=== PATIENT | female | born 1975 | race Two or more races ===

== ENCOUNTER 2016-10-18 20:25 | Emergency (ER) | payer BC, OTHER ==
[~2016-10-18] VITALS: Ht 157.5 cm; Wt 74.8 kg
[~2016-10-18 20:25] MED LIST: CIPRO500 MG PO; FLAGYL500 MG ORAL; METRONIDAZOLE500 MG ORAL; ONDANSETRON ODT8 MG ORAL; PERCOCET 5-3251 EACH ORAL
[2016-10-18 22:00] VITALS: BP 107/71
[2016-10-18 23:28] LABS: EOSINOPHILS % (AUTO) 0.3 % (0.0-3.0); LYMPHOCYTES % (AUTO) 13.1 % (20.0-45.0); MEAN CORPUSCULAR HEMOGLOBIN 30.2 PG (27.0-31.0); MEAN CORPUSCULAR HGB CONC 34.7 G/DL (32.0-36.0); MEAN CORPUSCULAR VOLUME 87 FL (80-99); MEAN PLATELET VOLUME 6.8 FL (6.5-10.1); MONOCYTES % (AUTO) 7.9 % (1.0-10.0); NEUTROPHILS % (AUTO) 77.7 % (45.0-75.0); PLATELET COUNT 282 K/UL (150-450); RED BLOOD COUNT 4.89 M/UL (4.20-5.40); RED CELL DISTRIBUTION WIDTH 11.2 % (11.6-14.8)
[2016-10-18 23:29] LABS: APPEARANCE,URINE CLEAR; KETONES,URINE NEGATIVE (NEGATIVE); LEUKOCYTE ESTERASE ,URINE NEGATIVE (NEGATIVE); NITRITE,URINE NEGATIVE (NEGATIVE); PH,URINE 8 (4.5-8.0); PROTEIN,URINE NEGATIVE (NEGATIVE); UROBILINOGEN,URINE NORMAL MG/DL (0.0-1.0)
[2016-10-18 23:30] VITALS: BP 110/75
[2016-10-18] MEDS ORDERED: Morphine Sulfate 4mg/ml Inj IVP ONE (23:30)
--- NOTE | 2016-10-18 23:30 | Emergency Room Report ---
History of Present Illness General Chief Complaint: Abdominal Pain Source: Patient (DEON DUARTE M.D.) Present Illness HPI 40 YO F with history of diverticulitis with 2 days progressively worse suprapubic 10/10 sharp non-radiating and LLQ pain associated with change in BM to watery diarrhea. Denies fever/chills, nausea/vomiting. Feels pressure with urination. No other medical problems, sick contacts, foreign travel. (DEON DUARTE M.D.) Allergies: Coded Allergies: No Known Allergies (Unverified , 10/16/14) Patient History Past Medical History: diverticulitis Past Surgical History: none Pertinent Family History: none Social History: Denies: alcohol use, drug use, smoking Last Menstrual Period: 10/11/16 Now: No Immunizations: UTD Reviewed Nursing Documentation: PMH: Agreed, PSxH: Agreed (DEON DUARTE M.D.) Nursing Documentation-PMH Past Medical History: No History, Except For Hx Gastrointestinal Problems: Yes - Diverticulitis (DEON DUARTE M.D.) Review of Systems All Other Systems: negative except mentioned in HPI (DEON UDARTE M.D.) Physical Exam Vital Signs Date Time Temp Pulse Resp B/P Pulse Ox O2 Delivery O2 Flow Rate FiO2 10/18/16 20:58 98.1 92 20 108/79 100 Room Air Sp02 EP Interpretation: reviewed, normal General Appearance: normal inspection, well appearing, no apparent distress, alert Head: atraumatic ENT: normal ENT inspection, hearing grossly normal, normal voice Neck: normal inspection, full range of motion, supple, no bony tend Respiratory: normal inspection, lungs clear, normal breath sounds, no respiratory distress, no retraction, no wheezing Cardiovascular #1: regular rate, rhythm, no edema Gastrointestinal: normal inspection, normal bowel sounds, soft, no guarding, no hernia, other - LLQ ttp Genitourinary: normal inspection, no CVA tenderness Musculoskeletal: normal inspection, back normal, normal range of motion, Maureen' s Sign negative Neurologic: normal inspection, alert, oriented x3, responsive, architectural intern III-XII nml as tested, motor strength/tone normal, speech normal Psychiatric: normal inspection, judgement/insight normal, mood/affect normal Skin: normal inspection, normal color, no rash (DEON DUARTE M.D.) Medical Decision Making Diagnostic Impression: Primary Impression: Diverticulitis Qualified Codes: K57.32 - Diverticulitis of large intestine without perforation or abscess without bleeding ER Course 40 YOF with LLQ pain and watery diarrhea with prior diverticulitis. VSS. Afebrile. DDX recurrent diverticulitis, colitis, viral gastronenteritis PLAN: Labs, analgesia, UA, CTAP Endorsed to Dr Guevara at 1130pm to followup labs, CTAP, determine disposition (DEON DUARTE M.D.) ER Course Patient signed out to me. She had a history of colitis 2 years ago. She presents with suprapubic left lower quadrant pain. Labs show mild leukocytosis. CT scan consistent with acute diverticulitis of the sigmoid colon. No perforation or abscess. Patient felt better now. We'll discharge home. I recommend outpatient colonoscopy make sure this is not inflammatory bowel disease. This can be done after inflammation infection resolved. (THOMAS GUEVARA M.D.) EKG Diagnostic Results Rate: normal Rhythm: NSR ST Segments: no acute changes ASA given to the pt in ED: No (DEON DUARTE M.D.) Rhythm Strip Diag. Results EP Interpretation: yes Rate: 87 Rhythm: NSR, no PVC's, no ectopy (DEON DUARTE M.D.) CT/MRI/US Diagnostic Results CT/MRI/US Diagnostic Results : Imaging Test Ordered: CT abdomen and pelvis Impression acute diverticulitis per radiologist (THOMAS GUEVARA M.D.) Last Vital Signs Date Time Temp Pulse Resp B/P Pulse Ox O2 Delivery O2 Flow Rate FiO2 10/18/16 22:00 80 15 107/71 100 Room Air 10/18/16 20:58 98.1 (DEON DUARTE M.D.) Status: improved (THOMAS GUEVARA M.D.) Disposition: HOME, SELF-CARE Condition: Stable Scripts Hydrocodone/Acetaminophen 5-325* (HYDROCODONE/ACETAMINOPHEN 5-325*) 1 Each Tablet 1 TAB ORAL Q6H Y for For Pain, #20 TAB 0 Refills Prov: THOMAS GUEVARA M.D. 10/19/16 Metronidazole* (FLAGYL*) 500 Mg Tablet 500 MG ORAL BID, #14 TAB Prov: THOMAS GUEVARA M.D. 10/19/16 Ciprofloxacin Hcl* (CIPROFLOXACIN HCL*) 500 Mg Tablet 500 MG ORAL Q12H, #14 TAB 0 Refills Prov: THOMAS GUEVARA M.D. 10/19/16 Referrals: NOT CHOSEN RASHAAD/,REFERRING (PCP) Additional Instructions: Followup with your DrCynthia in 2 to 3 days. Return if symptom worsen. Recommend colonoscopy to check for inflammatory bowel disease. He will need a referral to see a athletic events scorer from your Dr. DEON DUARTE M.D. Oct 18, 2016 23:30 THOMAS GUEVARA M.D. Oct 19, 2016 01:46
[2016-10-18 23:32] LABS: SQUAMOUS EPITHELIAL CELL,UR FEW /LPF (NONE/OCC); WBC,URINE 0-2 /HPF (0 - 2)
[2016-10-18 23:38] LABS: ALANINE AMINOTRANSFERASE 17 U/L (3-33); ALBUMIN/GLOBULIN RATIO 1.5 (1.0-2.7); ANION GAP 14 (5-15); ASPARTATE AMINO TRANSFERASE 19 U/L (5-40); CALCIUM 9.4 mg/dL (8.6-10.2); CARBON DIOXIDE 27 mEQ/L (20-30); CHLORIDE 98 mEQ/L (98-107); CREATININE 0.8 mg/dL (0.5-0.9); GLOMERULAR FILTRATION RATE > 60 mL/min (>60); HEMOLYSIS 15; LIPASE 17 U/L (< 60); POTASSIUM 3.8 mEQ/L (3.4-4.9); SODIUM 139 mEQ/L (135-145); TOTAL PROTEIN 7.2 g/dL (6.6-8.7)
[2016-10-19 01:30] VITALS: BP 120/78
[2016-10-19] MEDS ORDERED: Ciprofloxacin 500mg tab ORAL ONE (01:30)
[2016-10-19] MEDS ORDERED: metroNIDAZOLE 500mg tab ORAL ONE (01:30)
[2016-10-19] MEDS ORDERED: METRONIDAZOLE500 MG ORAL (01:46)
[2016-10-19] MEDS ORDERED: CIPROFLOXACIN500 M2 ORAL (01:46)
[2016-10-19] MEDS ORDERED: HYDROCODON-ACE1 EA15 ORAL (01:46)
[2016-10-19 02:00] VITALS: BP 123/79
--- NOTE | 2016-10-27 13:37 | Cardiology Report ---
APPROVED REPORT EKG Measurement Heart [id number] Normal sinus rhythm Normal ECG
--- NOTE | 2016-10-27 13:57 | Diagnostic Imaging Report ---
Clinical Indication: Abdominal pain Technique: No oral contrast utilized, per emergency room physician request IV administration nonionic contrast. Venous phase spiral acquisition obtained through the abdomen and pelvis. Multiplanar reconstructions were generated. Total dose length product mGycm. CTDIvol(s) mGy Comparison: 11/21/2014 Findings: There is colonic diverticulosis. There is infiltration of the perisigmoid fat adjacent to the proximal sigmoid, and a small amount of fluid tracking in the left paracolic gutter. No focal extra luminal fluid collections. No extraluminal gas demonstrated. Previously demonstrated distal descending diverticulitis is no longer evident. The appendix is normal. No small bowel distention. No free or loculated intraperitoneal air or fluid otherwise. Distal esophagus, stomach, duodenum are unremarkable. The liver demonstrates a 1 cm cyst segment 6, also present previously. Gallbladder, bile ducts, pancreas, spleen adrenals are unremarkable. The kidneys demonstrate bilateral subcentimeter low-attenuation lesions, too small to characterize, also present previously, most likely benign simple cortical cysts. No retroperitoneal or mesenteric mass or adenopathy. No pelvic mass or adenopathy. The included lung bases are clear. The bones are unremarkable except for mild degenerative spondylosis changes.. Impression: Positive for uncomplicated proximal sigmoid acute diverticulitis Bilateral subcentimeter low-attenuation renal lesions, too small to characterize, most likely benign simple cortical cysts. No further followup necessary Incidental findings of degenerative spondylosis, right lobe hepatic cyst This agrees with the preliminary interpretation provided overnight by [facility] teleradiology service. The CT scanner at [facility] is accredited by the [employer] and the scans are performed using protocols designed to limit radiation exposure to as low as reasonably achievable to attain images of sufficient resolution adequate for diagnostic evaluation.
== END 2016-10-19 02:00 | disposition home or self-care (01) ==
LOC: EMR 21:30
DX: K57.32 Diverticulitis of large intestine without perforation or abscess without bleeding (principal)
CPT/HCPCS: 36415; 74177; 80053; 81003; 81025; 83690; 85025; 93005; 96361; 96374; 99284; J2270; Q9967

== ENCOUNTER 2018-01-19 15:31 | Emergency (ER) | payer BC ==
[~2018-01-19] VITALS: Ht 157.5 cm; Wt 72.6 kg
[~2018-01-19 15:31] MED LIST changes: +CIPROFLOXACIN500 M2 ORAL; +HYDROCODON-ACE1 EA15 ORAL
[2018-01-19] MEDS ORDERED: Morphine Sulfate 4mg/ml Inj IVP ONE (16:15)
[2018-01-19] MEDS ORDERED: Isovue-300 100ml vial INJ PRN (16:15)
[2018-01-19 16:34] LABS: BASOPHILS % (AUTO) 1.5 % (0.0-2.0); EOSINOPHILS % (AUTO) 0.4 % (0.0-3.0); HEMOGLOBIN 14.8 G/DL (12.0-16.0); LYMPHOCYTES % (AUTO) 13.9 % (20.0-45.0); MEAN CORPUSCULAR VOLUME 86 FL (80-99); MONOCYTES % (AUTO) 8.5 % (1.0-10.0); NEUTROPHILS % (AUTO) 75.8 % (45.0-75.0); PLATELET COUNT 288 K/UL (150-450); RED BLOOD COUNT 4.86 M/UL (4.20-5.40); RED CELL DISTRIBUTION WIDTH 10.7 % (11.6-14.8); WHITE BLOOD COUNT 12.4 K/UL (4.8-10.8)
[2018-01-19 16:36] LABS: APPEARANCE,URINE CLEAR; BILIRUBIN, URINE NEGATIVE (NEGATIVE); COLOR,URINE PALE YELLOW; GLUCOSE, URINE (UA) NEGATIVE (NEGATIVE); KETONES,URINE NEGATIVE (NEGATIVE); LEUKOCYTE ESTERASE ,URINE 1+ (NEGATIVE); NITRITE,URINE NEGATIVE (NEGATIVE); PH,URINE 7 (4.5-8.0); PROTEIN,URINE NEGATIVE (NEGATIVE); UROBILINOGEN,URINE NORMAL MG/DL (0.0-1.0)
[2018-01-19 16:46] LABS: ANION GAP 9 mmol/L (5-15); BLOOD UREA NITROGEN 10 mg/dL (7-18); CALCIUM 9.1 MG/DL (8.5-10.1); CARBON DIOXIDE 28 MMOL/L (21-32); CHLORIDE 104 MMOL/L (98-107); CREATININE 0.9 MG/DL (0.55-1.30); POTASSIUM 3.5 MMOL/L (3.5-5.1); SODIUM 141 MMOL/L (136-145)
[2018-01-19 16:51] LABS: ALANINE AMINOTRANSFERASE 26 U/L (12-78); ALBUMIN 3.7 G/DL (3.4-5.0); ALBUMIN/GLOBULIN RATIO 0.9 (1.0-2.7); ALKALINE PHOSPHATASE 77 U/L (46-116); ASPARTATE AMINO TRANSFERASE 15 U/L (15-37); BILIRUBIN,TOTAL 0.5 MG/DL (0.2-1.0)
--- NOTE | 2018-01-19 17:16 | Emergency Room Report ---
History of Present Illness General Chief Complaint: Abdominal Pain Source: Patient Present Illness HPI 42-year-old female presents ED for evaluation. Complaining of abdominal pain. Started yesterday. Pain is lower, 8 out of 10, sharp, radiating to right lower abdomen. Denies fevers or chills. Denies nausea or vomiting. Denies dysuria or hematuria. Notes history of diverticulitis but states this does not feel like her diverticulitis. Denies any diarrhea. No other aggravating relieving factors. Denies any other associated symptoms Allergies: Coded Allergies: No Known Allergies (Unverified , 10/16/14) Patient History Past Medical History: other - diverticulitis Past Surgical History: none Pertinent Family History: none Social History: Denies: smoking, alcohol use, drug use Last Menstrual Period: 01/10/2018 Now: No Immunizations: UTD Reviewed Nursing Documentation: PMH: Agreed; PSxH: Agreed Nursing Documentation-PMH Past Medical History: No Stated History Hx Gastrointestinal Problems: Yes - Diverticulitis Review of Systems All Other Systems: negative except mentioned in HPI Physical Exam Vital Signs Date Time Temp Pulse Resp B/P (MAP) Pulse Ox O2 Delivery O2 Flow Rate FiO2 01/19/18 15:46 98.7 107 18 110/70 95 Room Air 98.8 Sp02 EP Interpretation: reviewed, normal General Appearance: no apparent distress, alert, GCS 15, non-toxic Head: normocephalic, atraumatic Eyes: bilateral eye normal inspection, bilateral eye PERRL ENT: hearing grossly normal, normal pharynx, no angioedema, normal voice Neck: full range of motion, supple/symm/no masses Respiratory: chest non-tender, lungs clear, normal breath sounds, speaking full sentences Cardiovascular #1: regular rate, rhythm, no edema Cardiovascular #2: 2+ carotid (R), 2+ carotid (L), 2+ radial (R), 2+ radial (L) , 2+ dorsalis pedis (R), 2+ dorsalis pedis (L) Gastrointestinal: normal bowel sounds, soft, non-distended, no guarding, no rebound, tenderness Rectal: deferred Genitourinary: normal inspection, no CVA tenderness Musculoskeletal: back normal, gait/station normal, normal range of motion, non- tender Neurologic: alert, oriented x3, responsive, motor strength/tone normal, sensory intact, speech normal Psychiatric: judgement/insight normal, memory normal, mood/affect normal, no suicidal/homicidal ideation Reflexes: 3+ bicep (R), 3+ bicep (L), 3+ tricep (R), 3+ tricep (L), 3+ knee (R) , 3+ knee (L) Skin: normal color, no rash, warm/dry, well hydrated Lymphatic: no adenopathy Medical Decision Making Diagnostic Impression: Primary Impression: Diverticulitis ER Course Hospital Course 42-year-old F presents to ED with lower abdominal pain Differential diagnoses include: appendicitis, diverticulitis, SBO, gastroenteritis Clinical course Patient placed on stretcher. monitoring and evaluation advisor. After initial history and physical I ordered labs, IV fluids, UA, pain medication and CT scan Labs - noted leukocytosis, Hb/Hct stable. electrolytes ok. CT abdomen and pelvis - diverticulitis. no free air, perforation or abcess Discussed findings with patient. Given patient appears nontoxic tolerating by mouth intake and believe patient can be safely discharged to home taking antibiotics. Patient agrees with plan Patient given Cipro, Flagyl here I feel this is a highly complex case requiring extensive working including EKG/ Rhythm strip, Xray/CT/US, Blood/urine lab work, repeat exams while in ED, and administration of strong opiates/narcotics for pain control, admission to hospital or close patient follow up. Diagnosis - divertculitis stable and discharged to home with prescription for [place], Cipro and Flagyl. Followup with PMD. Return to ED if symptoms recur or worsen Labs Test 01/19/18 15:54 01/19/18 16:19 Urine Color Pale yellow Urine Appearance Clear Urine pH 7 (4.5-8.0) Urine Specific [place] 1.005 (1.005-1.035) Urine Protein Negative (NEGATIVE) Urine Glucose (UA) Negative (NEGATIVE) Urine Ketones Negative (NEGATIVE) Urine Occult Blood 3+ (NEGATIVE) Urine Nitrite Negative (NEGATIVE) Urine Bilirubin Negative (NEGATIVE) Urine Urobilinogen Normal MG/DL (0.0-1.0) Urine Leukocyte Esterase 1+ (NEGATIVE) Urine RBC 2-4 /HPF (0 - 2) Urine WBC 5-10 /HPF (0 - 2) Urine Squamous Epithelial Cells Few /LPF (NONE/OCC) Urine Bacteria Few /HPF (NONE) Urine HCG, Qualitative Negative (NEGATIVE) White Blood Count 12.4 K/UL (4.8-10.8) Red Blood Count 4.86 M/UL (4.20-5.40) Hemoglobin 14.8 G/DL (12.0-16.0) Hematocrit 42.0 % (37.0-47.0) Mean Corpuscular Volume 86 FL (80-99) Mean Corpuscular Hemoglobin 30.4 PG (27.0-31.0) Mean Corpuscular Hemoglobin Concent 35.2 G/DL (32.0-36.0) Red Cell Distribution Width 10.7 % (11.6-14.8) Platelet Count 288 K/UL (150-450) Mean Platelet Volume 6.4 FL (6.5-10.1) Neutrophils (%) (Auto) 75.8 % (45.0-75.0) Lymphocytes (%) (Auto) 13.9 % (20.0-45.0) Monocytes (%) (Auto) 8.5 % (1.0-10.0) Eosinophils (%) (Auto) 0.4 % (0.0-3.0) Basophils (%) (Auto) 1.5 % (0.0-2.0) Sodium Level 141 MMOL/L (136-145) Potassium Level 3.5 MMOL/L (3.5-5.1) Chloride Level 104 MMOL/L (98-107) Carbon Dioxide Level 28 MMOL/L (21-32) Anion Gap 9 mmol/L (5-15) Blood Urea Nitrogen 10 mg/dL (7-18) Creatinine 0.9 MG/DL (0.55-1.30) Estimat Glomerular Filtration Rate > 60 mL/min (>60) Glucose Level 104 MG/DL (74-106) Calcium Level 9.1 MG/DL (8.5-10.1) Total Bilirubin 0.5 MG/DL (0.2-1.0) Aspartate Amino Transf (AST/SGOT) 15 U/L (15-37) Alanine Aminotransferase (ALT/SGPT) 26 U/L (12-78) Alkaline Phosphatase 77 U/L (46-116) Total Protein 7.6 G/DL (6.4-8.2) Albumin 3.7 G/DL (3.4-5.0) Globulin 3.9 g/dL Albumin/Globulin Ratio 0.9 (1.0-2.7) Lipase 77 U/L (73-393) CT/MRI/US Diagnostic Results CT/MRI/US Diagnostic Results : Imaging Test Ordered: CT A/P Impression mid to distal sigmoid colon acute diverticulitis. no free air or perforation or abscess Last Vital Signs Date Time Temp Pulse Resp B/P (MAP) Pulse Ox O2 Delivery O2 Flow Rate FiO2 01/19/18 15:46 98.7 107 18 110/70 95 Room Air 98.8 Status: improved Disposition: HOME, SELF-CARE Condition: Stable Scripts Metronidazole* (FLAGYL*) 500 Mg Tablet 500 MG ORAL THREE TIMES A DAY, #21 TAB Prov: Morris Dwyer MD 01/19/18 Ciprofloxacin Hcl* (CIPROFLOXACIN HCL*) 500 Mg Tablet 500 MG ORAL Q12H, #14 TAB 0 Refills Prov: Morris Dwyer MD 01/19/18 Hydrocodone Bit/Acetaminophen 5-325* (NORCO 5-325*) 1 Each Tablet 1 TAB ORAL Q6H PRN for For Pain, #10 TAB 0 Refills Prov: Morris Dwyer MD 01/19/18 Referrals: NON PHYSICIAN (PCP) Morris Dwyer MD January 19, 2018 17:16
[2018-01-19 17:54] VITALS: BP 107/74
--- NOTE | 2018-01-19 18:26 | Diagnostic Imaging Report ---
EXAM: CT Abdomen and Pelvis With Intravenous Contrast CLINICAL HISTORY: ABD PAIN TECHNIQUE: Axial computed tomography images of the abdomen and pelvis with intravenous contrast. CTDI is 16.97 mGy and DLP is 812 mGy-cm. One or more of the following dose reduction techniques were used: automated exposure control, adjustment of the mA and/or kV according to patient size, use of iterative reconstruction technique. COMPARISON: No relevant prior studies available. FINDINGS: Lung bases: Unremarkable. No mass. No consolidation. ABDOMEN: Liver: 6 mm hypodensity in the right hepatic lobe is too small to further characterize, likely a small simple cyst or biliary hamartoma. Gallbladder and bile ducts: See above. Pancreas: Unremarkable. No mass. No ductal dilation. Spleen: Unremarkable. No splenomegaly. Adrenals: Unremarkable. No mass. Kidneys and ureters: Punctate 3 mm density in the left lower renal pole may represent early urinary contrast excretion versus a nonobstructive stone. Bilateral simple-appearing renal cysts, largest measuring 9 mm in the right upper renal pole. Stomach and bowel: Scattered colonic diverticulosis. 7 cm segmental wall thickening in the mid to distal sigmoid colon with adjacent infiltrate stranding. No obstruction. PELVIS: Appendix: The appendix appears unremarkable. Bladder: Unremarkable. No mass. Reproductive: The uterus and ovaries appear unremarkable. ABDOMEN and PELVIS: Intraperitoneal space: Unremarkable. No free air. No significant fluid collection. Bones/joints: No acute fracture. No dislocation. Soft tissues: Unremarkable. Vasculature: Unremarkable. No abdominal aortic aneurysm. Lymph nodes: Unremarkable. No enlarged lymph nodes. IMPRESSION: 1. Acute diverticulitis involving a 7 cm segment of the mid to distal sigmoid colon. Adjacent inflammatory stranding without free air or free fluid. 2. Punctate 3 mm density in the left lower renal pole may represent early urinary contrast excretion versus a nonobstructive stone.
[2018-01-19] MEDS ORDERED: Ciprofloxacin 500mg tab ORAL ONE (19:00)
[2018-01-19] MEDS ORDERED: metroNIDAZOLE 500mg tab ORAL ONE (19:00)
[2018-01-19] MEDS ORDERED: CIPROFLOXACIN500 M2 ORAL (19:04)
[2018-01-19] MEDS ORDERED: NORCO 5-325 TA1 EACH ORAL (19:04)
[2018-01-19] MEDS ORDERED: METRONIDAZOLE500 MG ORAL (19:04)
[2018-01-19 19:16] VITALS: BP 109/74
== END 2018-01-19 19:16 | disposition home or self-care (01) ==
LOC: EMR 16:21
DX: K57.92 Diverticulitis of intestine, part unspecified, without perforation or abscess without bleeding (principal)
CPT/HCPCS: 36415; 74177; 80053; 81003; 81025; 83690; 85025; 96374; 96375; 99284; J2270; J2405; Q9967

== ENCOUNTER 2018-03-20 12:28 | Emergency (ER) | payer BC, OTHER ==
[~2018-03-20] VITALS: Ht 160 cm; Wt 74.4 kg
[~2018-03-20 12:28] MED LIST changes: +NORCO 5-325 TA1 EACH ORAL
[2018-03-20 12:48] VITALS: BP 135/86
[2018-03-20] MEDS ORDERED: HYDROcodone/Acetamin 7.5/325 tab ORAL ONE (14:00)
[2018-03-20] MEDS ORDERED: Ketorolac 60mg Inj IM ONE (14:15)
--- NOTE | 2018-03-20 16:01 | Diagnostic Imaging Report ---
Indication: Back and pelvic pain. Trauma Technique: Continuous helical transaxial imaging of the lumbar spine was obtained from the lung bases to the pubic symphysis. No IV contrast was administered. Coronal 2-D reformats were also obtained. Study obtained in a Siemens sensation [address] Total Dose length Product (DLP): 513.[address] Dose Index Volume (CTDIvol): 16.07 mGy Comparison: None Findings: There is no evidence of an acute fracture or malalignment. Height and configuration of the vertebral bodies and intervertebral discs are within normal limits. The facets hypertrophic at L4-5 and L5-S1. There is mild anterolisthesis at L5-S1 demonstrated.. There is no soft tissue swelling. There is sclerosis of the iliac side of the sacroiliac joint consistent with Osteitis condensans ilii, which is a benign finding. There is an incidental 4 mm stone demonstrated in the left kidney. Impression: Negative for acute injury. Incidental nonobstructive stone in the left kidney. Other incidental findings as above The CT scanner at [facility] is accredited by the [employer] and the scans are performed using dose optimization techniques as appropriate to a performed exam including Automatic Exposure control.
--- NOTE | 2018-03-20 16:02 | Diagnostic Imaging Report ---
Indication: Pelvic pain trauma Technique: Continuous helical transaxial imaging of the pelvis was obtained from the iliac crest to the pubic symphysis. Coronal 2-D reformats were also obtained. Study obtained in a Siemens sensation [address] Intravenous non-ionic contrast was administered. Total Dose length Product (DLP): 410.[address] Dose Index Volume (CTDIvol): 14.1 mGy Comparison: None Findings: No acute fracture or malalignment identified. Osteitis condensans ilii noted incidentally. Vacuum phenomena in the sacroiliac joints also demonstrated. 4 mm stone demonstrated in the left kidney. Diverticula noted in the colon. IMPRESSION: No acute injury appreciated. Other incidental findings as above The CT scanner at [facility] is accredited by the [employer] and the scans are performed using dose optimization techniques as appropriate to a performed exam including Automatic Exposure control.
--- NOTE | 2018-03-20 16:04 | Emergency Room Report ---
History of Present Illness General Chief Complaint: Lower Back Pain or Injury Source: Patient Present Illness HPI 32-year-old female presents to the emergency department complaining of 10 out of 10 in severity midline low back and sacral pain status post mechanical slip and fall on stairs yesterday. Patient also reports pain that radiates across the low back she denies sciatica symptoms. She denies hitting her head or having a loss of consciousness. Denies numbness tingling or loss of sensation or gross motor movements of the extremities, incontinence of bowel or bladder. Denies CP, Palpitations, LOC, AMS, dizziness, Changes in Vision, weakness or a sudden severe headache. Pt. has been taking tylenol and motrin without relief of her symptoms. Denies . Allergies: Coded Allergies: No Known Allergies (Unverified , 10/16/14) Patient History Past Medical History: see triage record Past Surgical History: none Pertinent Family History: none Last Menstrual Period: 02/25/18 Now: No : 4 Para: 4 Reviewed Nursing Documentation: PMH: Agreed; PSxH: Agreed Nursing Documentation-PMH Past Medical History: No History, Except For Hx Gastrointestinal Problems: Yes - Diverticulitis Review of Systems All Other Systems: negative except mentioned in HPI Physical Exam Vital Signs Date Time Temp Pulse Resp B/P (MAP) Pulse Ox O2 Delivery O2 Flow Rate FiO2 03/20/18 12:48 98.1 100 20 135/86 97 Room Air 98.1 Sp02 EP Interpretation: reviewed, normal General Appearance: alert, GCS 15, non-toxic, moderate distress Head: normocephalic, atraumatic Eyes: bilateral eye normal inspection, bilateral eye PERRL ENT: hearing grossly normal, normal voice Neck: full range of motion Respiratory: lungs clear, normal breath sounds, speaking full sentences Cardiovascular #1: regular rate, rhythm Musculoskeletal: back normal, gait/station normal - compensatory , normal range of motion, tender - midline and paraspinal of the L-spin and sacral area. Neurologic: alert, oriented x3, responsive, motor strength/tone normal, sensory intact, speech normal, grossly normal Psychiatric: judgement/insight normal Skin: normal color, no rash, warm/dry, well hydrated Medical Decision Making PA Attestation Dr. grossman is my supervising Physician whom patient management has been discussed with. Diagnostic Impression: Primary Impression: Low back pain Qualified Codes: M54.5 - Low back pain Additional Impressions: Contusion of back Qualified Codes: S20.229A - Contusion of unspecified back wall of thorax, initial encounter Contusion of mid back Qualified Codes: S20.229A - Contusion of unspecified back wall of thorax, initial encounter ER Course 32-year-old female presents to the emergency department complaining of 10 out of 10 in severity midline low back and sacral pain status post mechanical slip and fall on stairs yesterday. Patient also reports pain that radiates across the low back she denies sciatica symptoms. She denies hitting her head or having a loss of consciousness. Denies numbness tingling or loss of sensation or gross motor movements of the extremities, incontinence of bowel or bladder. Denies CP, Palpitations, LOC, AMS, dizziness, Changes in Vision, weakness or a sudden severe headache. Pt. has been taking tylenol and motrin without relief of her symptoms. Denies . Ddx considered but are not limited to Fracture, dislocation, contusion, Sprain/ Strain/Spasm, spinal chord injury, Epidural abscess, Neoplastic mets. Vital signs: are WNL, pt. is afebrile H&PE are most consistent with musculoskeletal injury will perform imaging to r/ o fractures/dislocations. ORDERS: CT non Contrast: L-spine and Pelvis: unremarkable for acute fractures. ED INTERVENTIONS: - [place] PO -Lidoderm TP. -I do not identify an emergent condition at this time. With current presentation , pt. is stable for close outpatient follow up and conservative treatment. D/ w pt. to return promptly to ED with worsening or new symptoms.- Pt. verbalizes ' understanding and agreement with proposed treatment plan.proposed treatment plan. DISCHARGE: At this time pt. is stable for d/c to home. Will provide printed patient care instructions, and any necessary prescriptions. Care plan and follow up instructions have been discussed with the patient prior to discharge. CT/MRI/US Diagnostic Results CT/MRI/US Diagnostic Results #1: Imaging Test Ordered: CT L-Spine Impression IMPRESSION: " no acute fractures or dislocations." Per official radiology report - Please see report for specific details. CT/MRI/US Diagnostic Results #2: Imaging Test Ordered: CT Pelvis Impression IMPRESSION: " no acute fractures or dislocations." Per official radiology report - Please see report for specific details. Last Vital Signs Date Time Temp Pulse Resp B/P (MAP) Pulse Ox O2 Delivery O2 Flow Rate FiO2 03/20/18 12:48 98.1 100 20 135/86 97 Room Air 98.1 Disposition: HOME, SELF-CARE Condition: Stable Scripts Tramadol Hcl* (ULTRAM*) 50 Mg Tablet 50 MG ORAL Q6H PRN for For Pain, #10 TAB 0 Refills Prov: Lilo Benz 03/20/18 Ibuprofen* (MOTRIN*) 600 Mg Tablet 600 MG ORAL THREE TIMES A DAY, #20 TAB 0 Refills Prov: Lilo Benz 03/20/18 Lidocaine (Lidoderm) 1 Each Adh..patch 1 PATCH TOPIC DAILY, #30 PATCH 0 Refills Patch(es) may remain in place for up to 12 hours in any 24-hour period. Prov: Lilo Benz 03/20/18 Referrals: NON PHYSICIAN (PCP) Patient Instructions: Back Pain, Adult, Contusion, [id number] Additional Instructions: Take medications as directed. Follow up with a Primary Care Provider in 3-5 days, even if your symptoms have resolved. --Please review list of primary care clinics, if you do not already have a primary care provider Return sooner to ED if new symptoms occur, or current symptoms become worse. Do not drink alcohol, drive, or operate heavy machinery while taking Ultram as this may cause drowsiness. - Please note that this Emergency Department Report was dictated using [employer] engineer technology software, occasionally this can lead to erroneous entry secondary to interpretation by the dictation equipment. Lilo Benz Mar 20, 2018 16:04
[2018-03-20] MEDS ORDERED: IBUPROFEN600 MG ORAL (16:05)
[2018-03-20] MEDS ORDERED: LIDODERM700 M1 TOPIC (16:05)
[2018-03-20] MEDS ORDERED: TRAMADOL HCL50 MG ORAL (16:05)
[2018-03-20 16:30] VITALS: BP 135/86
== END 2018-03-20 16:30 | disposition home or self-care (01) ==
LOC: EMR 13:23
DX: S30.0XXA Contusion of lower back and pelvis, initial encounter (principal); W10.9XXA Fall (on) (from) unspecified stairs and steps, initial encounter; Y92.9 Unspecified place or not applicable; N20.0 Calculus of kidney
CPT/HCPCS: 72131; 72192; 96372; 99284

== ENCOUNTER 2019-02-11 19:53 | Emergency (ER) | payer BC, OTHER ==
[~2019-02-11] VITALS: Ht 157.5 cm; Wt 75.7 kg
[~2019-02-11 19:53] MED LIST changes: +IBUPROFEN600 MG ORAL; +LIDODERM700 M1 TOPIC; +TRAMADOL HCL50 MG ORAL
[2019-02-11] MEDS ORDERED: SERTRALINE20 MG/1 M1 PO (20:02)
--- NOTE | 2019-02-11 20:10 | NUR ---
ED Nurse Note: pt walked in c/o left lower abd pain with nausea since 6 am, pt denies any diarrhea nor constipation but reports she has chills and feels like she is going to have diarrhea. pt last BM was today, normal brown soft. mild tenderness noted, active BS noted. will cont monitor.
--- NOTE | 2019-02-11 20:12 | Emergency Room Report ---
History of Present Illness General Chief Complaint: Abdominal Pain Source: Patient Present Illness HPI Patient present with complaints of left lower abdominal pain Reports that she has had several episodes of diverticulitis Usually she has discomfort in the right side Denies any chest pain She did have some chills earlier and increased nausea Denies any vomiting or diarrhea Denies any blood in the stool Denies any recent trauma Allergies: Coded Allergies: No Known Allergies (Unverified , 10/16/14) Patient History Past Medical History: see triage record Pertinent Family History: none Last Menstrual Period: 01/30/19 Now: No : 5 Para: 4 Reviewed Nursing Documentation: PMH: Agreed; PSxH: Agreed Nursing Documentation-PMH Past Medical History: No History, Except For Hx Gastrointestinal Problems: Yes - Diverticulitis History Of Psychiatric Problem: Yes - ANXIETY Review of Systems All Other Systems: negative except mentioned in HPI Physical Exam Vital Signs Date Time Temp Pulse Resp B/P (MAP) Pulse Ox O2 Delivery O2 Flow Rate FiO2 02/11/19 19:57 98.2 90 17 143/94 (110) 99 Room Air Sp02 EP Interpretation: reviewed, normal General Appearance: well appearing, no apparent distress Head: normocephalic, atraumatic Eyes: bilateral eye PERRL, bilateral eye EOMI ENT: hearing grossly normal, normal pharynx, TMs + canals normal, uvula midline Neck: full range of motion, supple, no meningismus, no bony tend Respiratory: lungs clear, normal breath sounds, no rhonchi, no respiratory distress, no retraction, no accessory muscle use Cardiovascular #1: normal peripheral pulses, regular rate, rhythm, no edema, no gallop, no JVD, no murmur Gastrointestinal: normal bowel sounds, soft, no mass, no organomegaly, non- distended, no guarding, no hernia, no pulsatile mass, no rebound, other - Uncomfortable on palpation left lower abdomen Genitourinary: no CVA tenderness Musculoskeletal: normal inspection Neurologic: oriented x3, responsive, dining car steward III-XII nml as tested, motor strength/ tone normal, sensory intact Psychiatric: mood/affect normal Skin: normal color, no rash, warm/dry, palpation normal Lymphatic: normal inspection, no adenopathy Medical Decision Making Diagnostic Impression: Primary Impression: Diverticulitis Additional Impression: Abdominal pain ER Course With the history exam and presentation, multiple differentials considered, including but not limited to appendicitis, gastritis, cholecystitis, diverticulitis On review patient has had multiple CT imaging obtained Essentially showing diverticulitis on every imaging At this time we will initiated with blood work and antibiotics with nausea medicine My suspicion for perforation is low patient is hemodynamically stable abdomen is soft no obvious peritoneal findings Patient's blood work is normal On repeat evaluation patient resting comfortably hemodynamically stable in further discussion with will try to avoid repeat CT imaging and patient will be treated clinically and return with any changes Labs Test 02/11/19 20:10 White Blood Count 10.7 K/UL (4.8-10.8) Red Blood Count 4.86 M/UL (4.20-5.40) Hemoglobin 14.2 G/DL (12.0-16.0) Hematocrit 41.1 % (37.0-47.0) Mean Corpuscular Volume 85 FL (80-99) Mean Corpuscular Hemoglobin 29.2 PG (27.0-31.0) Mean Corpuscular Hemoglobin Concent 34.5 G/DL (32.0-36.0) Red Cell Distribution Width 11.0 % (11.6-14.8) Platelet Count 303 K/UL (150-450) Mean Platelet Volume 5.7 FL (6.5-10.1) Neutrophils (%) (Auto) 66.9 % (45.0-75.0) Lymphocytes (%) (Auto) 19.7 % (20.0-45.0) Monocytes (%) (Auto) 9.2 % (1.0-10.0) Eosinophils (%) (Auto) 2.1 % (0.0-3.0) Basophils (%) (Auto) 2.1 % (0.0-2.0) Sodium Level 138 MMOL/L (136-145) Potassium Level 3.5 MMOL/L (3.5-5.1) Chloride Level 104 MMOL/L (98-107) Carbon Dioxide Level 27 MMOL/L (21-32) Anion Gap 7 mmol/L (5-15) Blood Urea Nitrogen 6 mg/dL (7-18) Creatinine 0.7 MG/DL (0.55-1.30) Estimat Glomerular Filtration Rate > 60 mL/min (>60) Glucose Level 99 MG/DL (74-106) Calcium Level 9.0 MG/DL (8.5-10.1) Lipase 82 U/L (73-393) Other X-Ray Diagnostic Results Other X-Ray Diagnostic Results : X-Ray ordered: kub # of Views/Limited Vs Complete: 2 View Indication: Pain EP Interpretation: Yes Interpretation: no dislocation, nonspecific bowel gas, no sbo, other - No free air Impression: No acute disease Electronically Signed by: Tony Balderas DO Last Vital Signs Date Time Temp Pulse Resp B/P (MAP) Pulse Ox O2 Delivery O2 Flow Rate FiO2 02/11/19 19:57 98.2 90 17 143/94 (110) 99 Room Air Status: improved Disposition: HOME, SELF-CARE Condition: Improved Additional Instructions: Patient is provided with the discharge instructions notified to follow up with primary doctor in the next 2-3 days otherwise return to the er with any worsening symptoms. Please note that this report is being documented using [employer] technology. This can lead to erroneous entry secondary to incorrect interpretation by the dictating instrument. Tony Balderas DO Feb 11, 2019 20:12
[2019-02-11 20:38] VITALS: BP 104/86
[2019-02-11 20:47] LABS: ANION GAP 7 mmol/L (5-15); BLOOD UREA NITROGEN 6 mg/dL (7-18); CARBON DIOXIDE 27 MMOL/L (21-32); CHLORIDE 104 MMOL/L (98-107); CREATININE 0.7 MG/DL (0.55-1.30); POTASSIUM 3.5 MMOL/L (3.5-5.1); SODIUM 138 MMOL/L (136-145)
[2019-02-11 20:49] LABS: BASOPHILS % (AUTO) 2.1 % (0.0-2.0); EOSINOPHILS % (AUTO) 2.1 % (0.0-3.0); HEMATOCRIT 41.1 % (37.0-47.0); HEMOGLOBIN 14.2 G/DL (12.0-16.0); LYMPHOCYTES % (AUTO) 19.7 % (20.0-45.0); MEAN CORPUSCULAR VOLUME 85 FL (80-99); MONOCYTES % (AUTO) 9.2 % (1.0-10.0); NEUTROPHILS % (AUTO) 66.9 % (45.0-75.0); PLATELET COUNT 303 K/UL (150-450); RED BLOOD COUNT 4.86 M/UL (4.20-5.40); WHITE BLOOD COUNT 10.7 K/UL (4.8-10.8)
[2019-02-11] MEDS ORDERED: LEVAQUIN500 MG ORAL (21:35)
[2019-02-11] MEDS ORDERED: NORCO 5-325 TA1 EACH ORAL (21:35)
[2019-02-11] MEDS ORDERED: METRONIDAZOLE500 MG ORAL (21:35)
[2019-02-11 22:46] VITALS: BP 110/70
--- NOTE | 2019-02-11 22:46 | NUR ---
ED Nurse Note: pt cleared to be d/c per ERMD, pt discharge and aftercare instruction provided w/ prescription, pt education done via discussion and handout, pt advised to follow up with pcp or return to ed if changes in condition, pt verbalized understanding and agrees with plan, vss, ambulatory w/ steady gait, left w/ all belongings accompanied by , iv d/c and id band removed.
--- NOTE | 2019-02-12 12:12 | Diagnostic Imaging Report ---
Indication: Abdominal pain Comparison: None Single view of the abdomen obtained Findings: Bowel gas pattern is nonspecific. No mass, ectopic calcifications, or abnormal gas collections are identified. There is a transversely oriented focus of ossification projecting from the right L5 transverse process. This is probably a partially ligamentous in nature. Facet arthropathy noted in the lower lumbar spine. Impression: No acute findings
== END 2019-02-11 22:46 | disposition home or self-care (01) ==
LOC: EMR 20:25
DX: K57.92 Diverticulitis of intestine, part unspecified, without perforation or abscess without bleeding (principal); R10.30 Lower abdominal pain, unspecified; F41.9 Anxiety disorder, unspecified
CPT/HCPCS: 36415; 74018; 80048; 83690; 85025; 96365; 96368; 96375; 99284; J1956; J2405